=== PATIENT | female | born 1980 | race Caucasian/White ===

== ENCOUNTER 2021-11-28 07:48 | Day surgery (SDC) | payer SELFPAY, OTHER ==
[2021-11-16 17:15] LABS: Hematocrit 34.8 % (37-47); Hemoglobin 11.9 g/dL (12.0-15.0); Mean Corp Hgb Conc 34.2 g/dL (32-36); Mean Corpuscular Hgb 30.7 pg (27.0-32.0); Mean Corpuscular Volume 89.7 fL (81-99); Mean Platelet Vol. 9.2 fl (6.2-12.0); Platelet Count 400 K/mm3 (150-450); RBC Distribution Width CV 13.1 % (11.6-14.6); RBC Distribution Width SD 42.5 fl (35.1-43.9); Red Blood Count 3.88 M/mm3 (4.2-5.4); White Blood Count 7.9 K/mm3 (4.4-11.0)
[2021-11-16 17:26] LABS: International Normalized Ratio 2.9; Prothrombin Time (Protime)PT. 29.7 SECONDS (11.7-14.9)
[2021-11-16 17:51] LABS: Internal QC Validated? YES +Cl - CLEAR BKGD; Pregnancy, Serum, hCG Quali. NEGATIVE Negative
--- NOTE | 2021-11-27 22:01 | PCM.HP.BLA ---
History and Physical Date of Admission: 11/28/21 Surgical History and Physical Vale Donald, a 41 year old female 0 0 0 0 0, presents for HTA, Hysteroscopy and D and C on November 28, 2021. -- Heavy Menses on Coumadin; Menorrhagia -- Reports monthly menses that can be normal in duration and bleeding to very heavy months that she ofter overflows pad. History of heart surgery with two stainless valves and takes blood thinner. States iron levels have been dropping and is here to discuss options for heavy bleeding. Ultrasound shows no polyps or fibroids. MEDICATIONS HISTORY: Current medications prescribed by our practice are: 1. Lovenox 100 mg/mL subcutaneous syringe, As directed sq q 12 hours for 5 days Patient is also takin. metoprolol succinate ER 25 mg tablet,extended release 24 hr, One pill by mouth twice a day 2. penicillin V potassium 250 mg tablet, One pill by mouth once a day 3. warfarin 3 mg tablet, four times a week alt 4 mg two times a week ALLERGIES: No Known Allergies Infections - Chicken pox Illnesses - Two Valves replaced, Stroke, Accidents - None Hospitalizations - see surgery Review of Systems: GENERAL - Denies fever, or chills SKIN - Denies skin changes EYES - Denies visual changes EARS - Denies difficulty hearing NOSE - Denies nasal congestion or bleeding MOUTH - Denies sore throat or difficulty swallowing NECK - Denies pain or swelling RESPIRATORY - Denies shortness of breath or wheezing CARDIOVASCULAR - Denies palpitations or chest pain GASTROINTESTINAL - Denies nausea, vomiting, diarrhea, constipation GENITOURINARY - Denies dysuria, frequency of urination, incontinence of urine MUSCULOSKELETAL - Denies joint or muscle pain NEUROLOGICAL - Denies localized numbness or weakness PSYCHIATRIC - Denies depression or anxiety ENDOCRINE - Denies heat or cold intolerance, weight loss or gain HEMATO-IMMUNOLOGIC - Denies excesive bleeding with cuts SOCIAL HISTORY: Alcohol Use - None Smoking - Never Diet - Avoid Greens Lifestyle - moderate stress lifestyle and single Exercise - active work Seat Belt Use - occasional Employer - [employer] Job Description - House Keeping Illicit Drug Use - None Sexual Activity - sexually inactive Control - Not active FAMILY HISTORY: MENSTRUAL HISTORY: LMP Known?- DefiniteAmount/Duration - 5-6 DAYS, Regularity - Regular, Frequency - monthly days, LMP - 10/25/21, Age Onset Menarche - 13 PAST PREGNANCIES: Total Pregnancies - 0; Full Term Pregnancies - 0; Premature - 0; Abortions, Induced - 0; Abortions, Spontaneous - 0; Ectopics - 0; Multiple Births - 0; Living Children - 0 SURGICAL HISTORY: 1. 1999 Attempt Heart Valve Repair 2. 2020 [place] Tooth Extraction 2000 Two Heart Valves Replaced PHYSICAL EXAM BP- 120/82 Sitting, Right arm, regular cuff Weight- 197.88225 lbs Height- 64 inch BMI:33.8 CONSTITUTIONAL - NAD, well nourished, and well developed SKIN - No rash, lesions, or ulcers HEENT - Normocephalic, PERRLA, EOMI NECK - No nodes, no nuchal rigidity and thyroid normal size and texture LYMPH NODES - Palpation of lymph nodes in neck and groins within normal limits LUNGS - CTA x2 without wheezes, crackles or rales CARDIAC - Regular rate and rhythm without rubs, murmurs, or gallops ABDOMEN - Without hepatosplenomegaly, distention, masses, rebound, or guarding; normal bowel sounds; no hernias EXTREMITIES - No edema or calf tenderness NEUROLOGICAL - Cranial nerves II-XII grossly intact PSYCHIATRIC - A and O to time, place, person, mood and affect ASSESSMENT/PLAN: 1. Premenopausal Menorrhagia Normal EM stripe thickness with pedunculated 4 cm fibroid. Should benefit from HTA. Will forego EMBx as virginal on Coumadin. Will proceed with HTA, D and C and H/S with Lovenox bridge. Discussed RBAs and all questions answered.
[2021-11-28] VITALS (9 sets, daily range): BP systolic 125–156; BP diastolic 84–107; PULSE 68–73; RESP 16–18; TEMP 36.1–36.2; O2SAT 94–100; BMI 31.8
--- NOTE | 2021-11-28 | EMB_PTH ---
PATIENT: ROBINSON GRIMES LOC: [facility] – [place] U#:[id number] AGE/SX: 41/F ROOM: RE11/28/[address]: Dr. David Grimm MD : 1980 BED: DIS: 11/28/2021 SPEC #: [id number] RECD: 11/28/21 13:22 STATUS: KEVIN ADELSO #: [id number] CLOTILDE: 11/28/21 00:[address]: David Grimm DEPT: SURGICAL PATHOLOGY RECD BY: Fred Pinto Tissues: Endometrium, NOS Procedures: Surgery Specimen Level IV HEADER OPERATION: Hysteroscopy, D & C, Hydroablation PRE-OP DIAGNOSIS: Premenopausal menorrhagia TISSUE SUBMITTED: Endometrial curettings MICROSCOPIC DIAGNOSIS Endometrial curettings: Proliferative endometrium with focal glandular breakdown. Fragments of benign endocervical epithelium, blood and mucous. SJ:prince 11/29/2021 MICROSCOPIC DESCRIPTION Slides are reviewed. GROSS DESCRIPTION Received in fixative is one container labeled with the patient's name and designated endometrial curettings and polyp. The specimen consists of multiple fragments of hemorrhagic soft tissue that in aggregate measure 3 x 2.5 x 0.3 cm. The specimen is totally submitted in one cassette. / SJ:prince 11/28/2021 TC:5 CPT: 61523
[2021-11-28 09:05] LABS: INR Fingerstick 1.1; Prothrombin Time Fingerstick 13.3 SEC (11.7-14.9)
[2021-11-28] MEDS: Lactated Ringers 1,000 ML 15 ML IV ×2 (09:24→13:22)
--- NOTE | 2021-11-28 10:49 | OP.PCM_ITS ---
Report of Operation Date of Procedure: 11/28/21 Pre-Operative Diagnosis: Menorrhagia Post-Operative Diagnosis: Menorrhagia Surgery/Procedure Performed:: Diagnostic Hysteroscopy, Dilation and Curettage, Hydrothermal Ablation Description of Surgical Findings:: 8 cm endometrial cavity without polyps or fibroids present. Small vagina but robotic hysterectomy should be feasible if hysterectomy is ever necessary. Surgeon: David Grimm Type of Anesthesia: General (LMA) Anesthesiologist: Salazar Dawson Specimen's removed: Endometrial curettings Estimated Blood Loss (mL): Minimal Fluids Replaced: Crystalloid Description of Procedure: Surgeon: David Grimm MD, FACOG Indication: This is a 41year old patient who has been having problems with extremely heavy menses. She has been on Coumadin for a number of years for valve replacement surgery in the past and is virginal. Conservative measures have not been helpful. Ultrasound showed that ablation may be helpful. Pt has been counseled regarding the risks, benefits and alternatives of this procedure and all questions answered. She understands that only about half of patients will have amenorrhea after this procedure. Procedure: Patient taken to the operating room where after induction of general anesthesia the patient was prepped and draped in the usual sterile fashion. Bladder was drained of urine with a catheter. Anterior cervix grasped and cervix was dilated to about 17 [place] size. Hysteroscopic hydrothermal ablation (HTA) unit was place in the cervix and the above findings were noted. HTA unit was removed and the uterus was gently curretted removing all contents. An HTA ablation cycle was then carried out at about 90 degrees Centigrade for 10 minutes with virtually no fluid loss during the procedure. After an appropriate cool down the HTA unit was removed with minimal bleeding noted. The patient tolerated the procedure well and was taken to the recovery room in satisfactory condition. Sponge, instruments and needle counts were all correct. There were no apparent complications of the surgery. Cefotan 2 gms IV was given prior to the procedure. Estimated Blood Loss: Minimal Specimen to Pathology: Endometrial Curettings Grafts/Implants Used: None Complications None Admit VTE Documentation VTE Present on Admission: Yes VTE Mechan Device Prophylaxis: SCD's
[2021-11-28] MEDS: Cefotetan 2 GM in 0.9% NS 100 ML IV (10:50)
--- NOTE | 2021-11-28 10:51 | PCM.DC ---
Discharge Instructions Diet Discharge Diet: No restrictions Activity Discharge Activity: Return to Normal Activity, May Shower and May Take a Tub Bath May resume sexual activity in: 3 weeks Additional Activity Instructions:: Nothing in the vagina for 3-4 weeks please. Use Ibuprophen 800 mg orally every 8 hours as needed for pain. Can also add Tylenol 1000 mg every 8 hours if needed for pain. If Ibuprophen and Tylenol are not effective then use the Oxycodone but keep in mind it can cause serious constipation issues. Drink lots of water. Call if bleeding more than a pad per hour. Clear to brownish discharge will last for about 3 weeks. Dressing / Incision Call your doctor if you observe: Fever of 101 or Higher, Inability to urinate, Inability to have a bowel movement and Using more than 1 pad per hour Follow Up Care Please Follow Up With: David Grimm MD When: 3 to 4 weeks Test Results: Test results from this visit will be discussed in further detail at your follow-up appointment, if applicable. Discharge Plan Admission Primary Reason for Your Visit: Endometrial Ablation Attending Provider: David Grimm Instructions Additional Instructions / Restrictions: Resume Lovenox today. Continue for 5 days until warfarin is effective. Discharge Orders/Prescriptions Prescriptions: Continued penicillin V potassium 250 mg tablet 250 mg PO DAILY RF: 0 warfarin 4 mg Tablet 4 mg PO SUSA RF: 0 warfarin 3 mg tablet 3 mg PO MOTUWETHFR RF: 0 aspirin 81 mg Capsule 81 mg PO DAILY RF: 0 sertraline 25 mg tablet 25 mg PO DAILY RF: 0 metoprolol succinate 25 mg tablet extended release 24 hr 25 mg PO BID RF: 0 Disposition Disposition (needs filled in before D/C Order can be placed): Home, Self Care
[2021-11-28 11:08] LABS: Internal QC Validated? YES +Cl - CLEAR BKGD; Pregnancy, Urine Negative Negative
[2021-11-28] MEDS: oxyCODONE 5 MG Tablet PO (14:15)
--- NOTE | 2021-11-28 14:33 | PCM.DC ---
Discharge Instructions Diet Discharge Diet: No restrictions Activity May resume sexual activity in: 3 weeks Additional Activity Instructions:: Nothing in the vagina for 3-4 weeks please. Use Ibuprophen 800 mg orally every 8 hours as needed for pain. Can also add Tylenol 1000 mg every 8 hours if needed for pain. If Ibuprophen and Tylenol are not effective then use the Oxycodone but keep in mind it can cause serious constipation issues. Drink lots of water. Call if bleeding more than a pad per hour. Clear to brownish discharge will last for about 3 weeks. Dressing / Incision Call your doctor if you observe: Fever of 101 or Higher, Inability to urinate, Inability to have a bowel movement and Using more than 1 pad per hour Follow Up Care Please Follow Up With: David Grimm MD Test Results: Test results from this visit will be discussed in further detail at your follow-up appointment, if applicable. Discharge Plan Admission Primary Reason for Your Visit: Endometrial Ablation Attending Provider: David Grimm Instructions Additional Instructions / Restrictions: Resume Lovenox today. Continue for 5 days until warfarin is effective. Discharge Orders/Prescriptions Prescriptions: New oxycodone 5 mg capsule 5 mg PO Q6H PRN (Reason: pain (scale score 7-10)) 7 Days Qty: 7 RF: 0 Continued penicillin V potassium 250 mg tablet 250 mg PO DAILY RF: 0 warfarin 4 mg Tablet 4 mg PO SUSA RF: 0 warfarin 3 mg tablet 3 mg PO MOTUWETHFR RF: 0 aspirin 81 mg Capsule 81 mg PO DAILY RF: 0 sertraline 25 mg tablet 25 mg PO DAILY RF: 0 metoprolol succinate 25 mg tablet extended release 24 hr 25 mg PO BID RF: 0 Disposition Discharge Orders: Discharge Patient (Routine); Ordered 11/28/21 Ordered By: Dr. David Grimm
== END 2021-11-28 14:28 | disposition home or self-care (01) ==
LOC: SDC 08:07 → AC 08:47
PROVIDERS: Anesthesiology; Referring Provider Obstetrics & Gynecology; Visit Provider Obstetrics & Gynecology
PROC: 0U5B8ZZ Destruction of Endometrium, Via Natural or Artificial Opening Endoscopic (ICD-10-PCS; CPT 58563; principal; 2021-11-28 10:20)
DX: N92.4 Excessive bleeding in the premenopausal period (principal); I10 Essential (primary) hypertension; Z79.82 Long term (current) use of aspirin; Z79.899 Other long term (current) drug therapy; Z86.73 Personal history of transient ischemic attack (TIA), and cerebral infarction without residual deficits; Z79.01 Long term (current) use of anticoagulants; Z95.2 Presence of prosthetic heart valve
CPT/HCPCS: 58563; 00952; 36415; 36416; 81025; 84703; 85027; 85610; 85730; 86850; 86900; 86901; 87426; 88305; J7120